=== PATIENT | female | born 1965 | race Caucasian/White ===

== ENCOUNTER → 2019-05-20 | Outpatient (CLI) | payer MEDICARE ==
--- NOTE | 2019-05-20 14:20 | XR ---
2 view abdomen HISTORY: Left lower quadrant pain 2 views the abdomen on [address] 11/04/2014 Lung bases are clear. There is no evident pneumoperitoneum or bowel obstruction. Slight spinal curvat ure noted. Bone mineralization is maintained. There is a pleural calcification associated with the po sterior diaphragmatic surface on the left. Phlebolith noted in the pelvis the left. IMPRESSION: No significant abnormality is evident.
== END | disposition home or self-care (01) ==
LOC: RADXRYALE 11:33
PROVIDERS: ATTEND Physician Assistant Medical
DX: R10.32 Left lower quadrant pain (principal)
CPT/HCPCS: 74019

== ENCOUNTER → 2019-06-10 | Outpatient (CLI) | payer MEDICARE ==
--- NOTE | 2019-06-10 10:11 | CT ---
EXAMINATION TYPE: CT abdomen pelvis w con DATE OF EXAM: 06/10/2019 HISTORY: LLQ pain CT DLP: 1706.5mGycm Automated Exposure Control for Dose Reduction was Utilized. CONTRAST: CT scan of the abdomen and pelvis is performed with IV Contrast, patient injected with 100 mL of Isov ue 300. COMPARISON: 11/04/2014 FINDINGS: LUNG BASES: Few pleural punctate calcifications and areas of subsegmental atelectasis are seen. LIVER/GB: Hepatic parenchyma is diffusely hypoattenuated in comparison to that of the spleen, most co mmonly seen in hepatic steatosis. This finding limits evaluation for hepatic masses. No gross evidenc e of hepatic mass is seen. No intrahepatic biliary ductal dilatation. No cholelithiasis. PANCREAS: No significant abnormality is seen. SPLEEN: No splenomegaly. ADRENALS: No nodularity or thickening. KIDNEYS: Today's enhance and excrete symmetrically. BOWEL: No dilated large or small bowel. UTERUS/ADNEXA: Surgically absent uterus. LYMPH NODES: Few calcified retroperitoneal lymph nodes in the periaortic region and paraesophageal re gion and the visualized portion of the thorax. No greater than 1cm abdominal or pelvic lymph nodes ar e appreciated. OSSEOUS STRUCTURES: Mild grade 1 anterolisthesis of L5 on S1, likely on a degenerative basis. Mild mu ltilevel degenerative change of the spine overall. OTHER: Periumbilical soft tissue again represents scar tissue is seen on the exam of 2014. IMPRESSION: 1. No significant acute finding is seen to account for patient's clinical symptoms. 2. Hepatic steatosis.
== END | disposition home or self-care (01) ==
LOC: RADCTMAIN 07:42
PROVIDERS: ATTEND Family Medicine
DX: K76.0 Fatty (change of) liver, not elsewhere classified (principal)
CPT/HCPCS: 82565; 84520; 74177; 36415; Q9967 ×2